=== PATIENT | female | born 1965 | race Caucasian/White ===

== ENCOUNTER → 2020-11-03 15:04 | Outpatient (BNVA) | payer BC, SELFPAY | PROVIDERS: PCP Internal Medicine; Referring Provider Internal Medicine; Visit Provider Student in an Organized Health Care Education/Training Program | DX: Z76.89 Persons encountering health services in other specified circumstances (principal) ==

== ENCOUNTER → 2020-11-27 10:26 | Outpatient (BNVA) | payer BC, SELFPAY | PROVIDERS: PCP Internal Medicine; Visit Provider Student in an Organized Health Care Education/Training Program ==

== ENCOUNTER → 2021-03-03 08:23 | Outpatient (BNVA) | payer BC, SELFPAY | PROVIDERS: Visit Provider Student in an Organized Health Care Education/Training Program ==

== ENCOUNTER → 2021-04-02 10:49 | Outpatient (BNVA) | payer BC, SELFPAY | PROVIDERS: PCP Internal Medicine; Visit Provider Student in an Organized Health Care Education/Training Program ==

== ENCOUNTER → 2021-07-28 11:09 | Outpatient (BNVA) | payer BC, SELFPAY | PROVIDERS: PCP Internal Medicine; Visit Provider Nurse Practitioner Family ==

== ENCOUNTER → 2021-10-12 11:38 | Outpatient (BNVA) | payer BC, SELFPAY | PROVIDERS: PCP Internal Medicine; Visit Provider Nurse Practitioner Family ==

== ENCOUNTER → 2022-01-14 11:29 | Outpatient (BNVA) | payer BC, SELFPAY | PROVIDERS: PCP Internal Medicine; Visit Provider Nurse Practitioner Family ==

== ENCOUNTER → 2022-03-01 10:12 | Outpatient (BNVA) | payer BC, SELFPAY | PROVIDERS: PCP Internal Medicine; Visit Provider Nurse Practitioner Family | DX: Z13.89 Encounter for screening for other disorder (principal) ==

== ENCOUNTER 2023-08-18 09:16 | Outpatient (AMB) | payer BC, SELFPAY ==
--- NOTE | 2023-08-18 09:24 | A.OFFVIS_ITS ---
Intake Vital Signs 08/18/23 09:26 Height 5 ft 5 in Weight 153 lb 7.068 oz BMI 25.5 BP 112/74 Blood Pressure Location Rt brachial Position Sitting Pulse 85 Pulse Source Pulse Oximeter Temp 97.5 F Temp Source Skin Pulse Oximetry (%) 99 Intake Visit Reasons: RA Intake Note: Pt presents today for follow up. She was last sen by Rachel 03/01/22. Reports she was on kevzara had to go off for surgery January 2022. Would rather not go back on injectable. Failed MTX, Xeljanz, Humira Porcelain Enamel Installer Required: No Accompanied by: Self / Same As Patient Allergies No Known Allergies Allergy (Verified 08/18/23 09:29) Medication List - Last Reconciled 08/18/23 by Marciano Monroe MD bupropion HCl 150 mg PO QAM cholecalciferol (vitamin D3) 50 mcg PO DAILY HPI HPI Comments History of Present Illness Details This is a 58-year-old female with seropositive RA who presents for follow-up. She was last seen by Radha Vee . She has been off DMARDs since 01/2022 in preparation for bilateral foot bunion surgery. She was last on Kevzara. Patient went for left foot bunion surgery followed by her right foot bunion surgery a few months later. The plate in the right foot was removed. Recently patient was evaluated by her dual hose cementer, the plate in her left foot was moving, patient stated that her dual hose cementer told her that since it was not symptomatic, there was no need to remove it. She stated however that repeat x-rays of the feet showed deteriorating bone Patient states that over the last year or so she has been having intermittent flare-ups of joint pain and swelling which effects both her shoulders, hands, ankles. She has flare-ups that occur about once a week, usually late at night, can last 1 day to a few days. She used very treated with large doses of Aleve or ibuprofen. 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 Review of Systems [facility] [place] Reports arthralgias, Reports joint swelling, Reports limited range of motion and Reports stiffness Physical Exam Vital Signs: Last Vital Signs Temp 97.5 F 08/18/23 09:26 Pulse 85 08/18/23 09:26 BP 112/74 08/18/23 09:26 Pulse Ox 99 08/18/23 09:26 BMI result Body Mass Index 25.5 Const General: cooperative, healthy appearing and comfortable Nutritional Appearance: average body habitus Orientation/consciousness: patient oriented x3 Limitations: no limitations HEENT Head: Yes normocephalic and Yes atraumatic Mouth: moist mucous membranes Resp Effort & Inspection: normal respiratory effort and able to speak in complete sentences Auscultation: clear to auscultation bilaterally Cardio Rate: regular rate Rhythm: regular rhythm GI Inspection: No distended Palpation (GI): Soft to palpation and nontender Skin General skin exam: no rashes or lesions noted Neuro General: patient oriented x3 Extrem Other: Left wrist pain with full flexion Positive MCP squeeze test left hand Puffiness of fingers of both hands Right 1st, 2nd, 4th and 5th MCP swelling and tenderness Few tender PIPs bilaterally Right wrist tenderness and pain with flexion and extension No elbow or shoulder pain with full range of motion bilaterally Positive MTP squeeze test bilaterally without swelling No ankle swelling or tenderness bilaterally Normal range of motion of both knees without pain Normal nailfold capillaroscopy Assessment & Plan Assessment & Plan (1) Seropositive rheumatoid arthritis: Comment: +RF+++CCP dx 2016 MTX started around 2016, incomplete response, Humira added afterwards. Both were self discontinued switched to Xeljanz in 01/2021, switched to Kevzara 06/2021 due to incomplete response effective kevzara held 02/2022 in preparation for bilateral bunion surgery Code(s): M05.9 - Rheumatoid arthritis with rheumatoid factor, unspecified Plan: This is a 58-year-old female who presents for evaluation of seropositive RA. Patient has been off DMARDs since 01/2022 in preparation for bilateral bunion surgery. For the last year patient has been having intermittent flare-ups of inflammatory arthritis. On exam patient has multiple swollen and tender joints. Needs to restart DMARDs. We had a long discussion about multiple DMARDs. Oral versus injectable. Today will check bilateral hand and wrist x-rays to evaluate for erosions. Will request records from patient's dual hose cementer Check labs today Follow-up in Two weeks to discuss treatment. Plan I spent 35 minutes reviewing patient's chart, evaluating patient, ordering diagnostic workup, counseling patient and documenting in the chart Orders: Orders Complete Blood Count Auto Diff Today M05.9 - Rheumatoid arthritis with rheumatoid factor, unspecified Comprehensive Met. Panel Today M05.9 - Rheumatoid arthritis with rheumatoid factor, unspecified Hepatitis A,B,C Profile Today Z11.59 - Encounter for screening for other viral diseases Protein Electrophoresis, Serum Today M05.9 - Rheumatoid arthritis with rheumatoid factor, unspecified XR hand wrist RT Today M05.9 - Rheumatoid arthritis with rheumatoid factor, unspecified Scleroderma 12 Panel Today M34.9 - Systemic sclerosis, unspecified C Reactive Protein Today M05.9 - Rheumatoid arthritis with rheumatoid factor, unspecified Erythrocyte Sedimentation Rate Today M05.9 - Rheumatoid arthritis with rheumato id factor, unspecified Immunofixation Pnl, Serum Today M05.9 - Rheumatoid arthritis with rheumatoid factor, unspecified T Spot TB Today Z11.7 - Encounter for testing for latent tuberculosis infection XR hand wrist LT Today M05.9 - Rheumatoid arthritis with rheumatoid factor, unspecified Coding Level of Care Code Est Pt Level 4 (36120) Diagnoses Seropositive rheumatoid arthritis M05.9
[2023-08-18 09:26] VITALS: BP 112/74; PULSE 85; TEMP 36.4; O2SAT 99; BMI 25.5
== END 2023-08-18 10:03 | disposition home or self-care (01) ==
PROVIDERS: PCP Internal Medicine; Visit Provider Student in an Organized Health Care Education/Training Program
DX: M05.79 Rheumatoid arthritis with rheumatoid factor of multiple sites without organ or systems involvement (principal)
CPT/HCPCS: 99214

== ENCOUNTER 2023-08-18 09:16 | Outpatient (REF) | payer BC, SELFPAY ==
--- NOTE | ~2023-08-18 | XR_ITS ---
EXAMINATION: XR WRIST, LEFT XR HAND, LEFT CLINICAL INFORMATION: Rheumatoid arthritis without rheumatoid factor, unspecified COMPARISON: Same-day right hand TECHNIQUE: PA, lateral, and oblique views of the left wrist and PA, lateral, and oblique views of the left hand FINDINGS: LEFT WRIST: The bones are intact. No fracture. There is marked narrowing of the radiocarpal joint with subchondral cystic formation in the distal radius. The triscaphe joint is narrow. No soft tissue calcifications. LEFT HAND: The bones are intact. No fracture. Alignment is anatomic. Mild erosive changes involve the head of the first metacarpal and base of the proximal phalanx of the thumb. There is mild narrowing of the first carpometacarpal joint and fifth metacarpophalangeal joint. Small ?Calcific densities in the dorsal aspect of the middle finger at the level of the middle phalanx XR/XR hand wrist LT IMPRESSION: 1. Degenerative changes of the left wrist. 2. Arthritic changes of the left hand. 3. No acute bony abnormality.
--- NOTE | ~2023-08-18 | XR_ITS ---
EXAMINATION: XR WRIST, RIGHT XR HAND, RIGHT CLINICAL INFORMATION: Rheumatoid arthritis without rheumatoid factor, unspecified COMPARISON: None available. TECHNIQUE: PA, lateral, and oblique views of the right wrist and PA, lateral, and oblique views of the right hand FINDINGS: RIGHT WRIST: The bones are intact. No fracture. Alignment is anatomic. There is mild narrowing of the triscaphe joint and first carpometacarpal joint. No erosions or soft tissue calcifications. RIGHT HAND: The bones are intact.. No fracture. Alignment is anatomic. There are marked erosive changes involving the head of the first metacarpal with marked narrowing of the first carpometacarpal joint. There are marked erosive changes involving the head of the second metacarpal and base of the proximal phalanx of the index finger with narrowing of the second metacarpophalangeal joint. Small erosive changes also involve the base of the proximal phalanx of the ring finger and base of the proximal phalanx of the little finger. XR/XR hand wrist RT IMPRESSION: Erosive changes in the hand as described above.
[2023-08-18 10:35] LABS: MANUAL DIFF FLAG NO
[2023-08-18 11:27] LABS: Basophils Absolute Auto 0.1 X10*3/uL (0.0-0.2); Eosinophils Absolute Auto 0.2 X10*3/uL (0.0-0.4); Eosinophils Percent Auto 2.3 % (0-4); Hematocrit 41.4 % (37.0-47.0); Hemoglobin 13.6 g/dl (12.0-16.0); Imm Gran Abs Auto 0.03 X10*3/uL (0.00-0.03); Imm Gran Pct Auto 0.4 % (0.0-0.4); Lymphocytes Absolute Auto 2.4 X10*3/uL (1.2-4.9); Lymphocytes Percent Auto 30.4 % (20-40); Mean Corpuscular HGB Conc 32.9 g/dl (31.0-35.0); Mean Corpuscular Hemoglobin 30.5 pg (27.0-33.0); Mean Corpuscular Volume 92.8 fL (80.0-98.0); Monocytes Absolute Auto 0.7 X10*3/uL (0.1-1.2); Monocytes Percent Auto 9.3 % (2-11); Neutrophils Absolute Auto 4.5 x10*3/uL (2.0-8.3); Neutrophils Percent Auto 56.6 % (45-73); Platelet Count 361 X10*3/uL (160-400); Red Blood Count 4.46 X10*6/uL (4.20-5.50); Red Cell Distribution Width 13.3 % (11.0-16.0)
[2023-08-18 12:08] LABS: Erythrocyte Sedimentation Rate 5 MM/HR (0-20)
[2023-08-18 12:14] LABS: Alanine Aminotransferase 8 U/L (0-31); Albumin Level 4.2 g/dL (3.5-5.0); Alkaline Phosphatase 84 U/L (39-117); Anion Gap 13 (12-20); Aspartate Amino Transferase 19 U/L (5-31); Bilirubin Total 0.5 mg/dL (0.0-1.0); Blood Urea Nitrogen 21 mg/dL (9-16); C Reactive Protein < 0.10 mg/dL (< or = 0.50); Calcium 9.9 mg/dL (8.4-10.2); Carbon Dioxide 23 mmol/L (22-29); Chloride 107 mmol/L (96-108); Estimated Glomerular Filt Rate > 60; Glucose Random 85 mg/dL (60-115); Potassium 4.5 mmol/L (3.3-5.1); Sodium 138 mmol/L (135-145); Total Protein 7.5 g/dL (6.5-8.0)
[2023-08-21 01:14] LABS: TS Negative Control Passed; TS Panel A 0; TS Panel B 1; TS Positive Control Passed; TSpotTB Negative (Negative)
[2023-08-21 08:45] LABS: HBS Num1 1.73 mIU/mL (0-7.99); HBc Num1 0.09 S/CO (0.00-0.79); HBsAGNum1 0.34 S/CO (0.00-0.99); Hepatitis A Antibody IgM 0.18 Index (0-0.79); Hepatitis B Core Antibody Nonreactive (Nonreactive); Hepatitis B Surface Antigen Negative (Negative); ~HepC Num1 0.05 S/CO (0.00-0.79); ~Hepatitis A Antibody IgM Nonreactive (Nonreactive); ~Hepatitis B Surface Antibody NONREACTIVE (Nonreactive); ~Hepatitis C Antibody Nonreactive (Nonreactive)
[2023-08-22 10:04] LABS: Prot Elec - Albumin 4.2 g/dL (3.8-4.8); Prot Elec - Alpha1 0.3 g/dL (0.2-0.3); Prot Elec - Alpha2 0.7 g/dL (0.5-0.9); Prot Elec - Beta 1 0.4 g/dL (0.4-0.6); Prot Elec - Beta 2 0.3 g/dL (0.2-0.5); Prot Elec - Gamma 1.2 g/dL (0.8-1.7); Prot Elec - Total Protein 7.1 g/dL (6.1-8.1)
[2023-08-23 14:44] LABS: IgA 152 mg/dL (47-310); IgG 1334 mg/dL (600-1640); IgM 134 mg/dL (50-300)
[2023-08-25 11:58] LABS: Centromere Protein A Ab <11 SI (<11); Centromere Protein B Ab <11 SI (<11); Fibrillarin Ab <11 SI (<11); PM SCL 100 Ab <11 SI (<11); PM SCL 75 Ab <11 SI (<11); RNA Polymerase III RP11 Ab <11 SI (<11); RNA Polymerase III RP155 Ab <11 SI (<11); SCL-70 Extractable Nuclear Ab <11 SI (<11); Th-To Ab <11 SI (<11); U1 SNRNP RNP 70KD <11 SI (<11); U1 SNRNP RNP A <11 SI (<11); U1 SNRNP RNP C <11 SI (<11)
== END 2023-08-18 09:17 | disposition home or self-care (01) ==
LOC: HO.XRAY 09:16
PROVIDERS: PCP Internal Medicine; Visit Provider Student in an Organized Health Care Education/Training Program
DX: Z11.59 Encounter for screening for other viral diseases (principal); Z11.7 Encounter for testing for latent tuberculosis infection; M05.9 Rheumatoid arthritis with rheumatoid factor, unspecified; Z72.89 Other problems related to lifestyle
CPT/HCPCS: 36415; 73110; 73130; 80053; 82784; 84165; 84182; 85025; 85652; 86140; 86235; 86334; 86481; 86704; 86706; 86709; 86803; 87340

== ENCOUNTER 2023-09-08 15:16 | Outpatient (AMB) | payer BC, SELFPAY ==
--- NOTE | 2023-09-08 15:16 | A.OFFVIS_ITS ---
Intake Intake Visit Reasons: RA Intake Note: Telehealth follow up for test results. Kitchen Designer Required: No Accompanied by: Self / Same As Patient Allergies No Known Allergies Allergy (Verified 09/08/23 15:17) Medication List - Last Reconciled 09/08/23 by Marciano Monroe MD bupropion HCl 150 mg PO QAM cholecalciferol (vitamin D3) 50 mcg PO DAILY HPI HPI Comments History of Present Illness Details 58-year-old female with seropositive RA returns for tele health follow- up. Doing about the same overall. INITIAL HISTORY: This is a 58-year-old female with seropositive RA who presents for follow-up. She was last seen by Radha Vee . She has been off DMARDs since 01/2022 in preparation for bilateral foot bunion surgery. She was last on Kevzara. Patient went for left foot bunion surgery followed by her right foot bunion surgery a few months later. The plate in the right foot was removed. Recently patient was evaluated by her high school math teacher, the plate in her left foot was moving, patient stated that her high school math teacher told her that since it was not symptomatic, there was no need to remove it. She stated however that repeat x-rays of the feet showed deteriorating bone Patient states that over the last year or so she has been having intermittent flare-ups of joint pain and swelling which effects both her shoulders, hands, ankles. She has flare-ups that occur about once a week, usually late at night, can last 1 day to a few days. She used very treated with large doses of Aleve or ibuprofen. 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 Review of Systems [facility] [place] Reports arthralgias, Reports joint swelling, Reports limited range of motion and Reports stiffness Physical Exam Const Other: Telehealth phone visit General: cooperative Resp Effort & Inspection: normal respiratory effort and able to speak in complete sentences Results Reviewed Results Reviewed: [address] [address] XRay Report Signed Patient: Rula Napoles MR#: [id number] : 1965 Acct:[id number] Age/Sex: 58 / F ADM Date: 08/18/23 Loc: [facility] Attending Dr: Marciano Monroe MD Ordering Physician: Marciano Monroe MD Date of Service: 08/18/23 Procedure(s): XR hand wrist LT Accession Number(s): [id number] cc: Jaime Miguel MD; Marciano Monroe MD~ EXAMINATION: XR WRIST, LEFT XR HAND, LEFT CLINICAL INFORMATION: Rheumatoid arthritis without rheumatoid factor, unspecified COMPARISON: Same-day right hand TECHNIQUE: PA, lateral, and oblique views of the left wrist and PA, lateral, and oblique views of the left hand FINDINGS: LEFT WRIST: The bones are intact. No fracture. There is marked narrowing of the radiocarpal joint with subchondral cystic formation in the distal radius. The triscaphe joint is narrow. No soft tissue calcifications. LEFT HAND: The bones are intact. No fracture. Alignment is anatomic. Mild erosive changes involve the head of the first metacarpal and base of the proximal phalanx of the thumb. There is mild narrowing of the first carpometacarpal joint and fifth metacarpophalangeal joint. Small ?Calcific densities in the dorsal aspect of the middle finger at the level of the middle phalanx XR/XR hand wrist LT IMPRESSION: 1. Degenerative changes of the left wrist. 2. Arthritic changes of the left hand. 3. No acute bony abnormality. [address] [address] XRay Report Signed Patient: Rula Napoles MR#: [id number] : 1965 Acct:[id number] Age/Sex: 58 / F ADM Date: 08/18/23 Loc: [facility] Attending Dr: Marciano Monroe MD Ordering Physician: Marciano Monroe MD Date of Service: 08/18/23 Procedure(s): XR hand wrist RT Accession Number(s): [id number] cc: Jaime Miguel MD; Marciano Monroe MD~ EXAMINATION: XR WRIST, RIGHT XR HAND, RIGHT CLINICAL INFORMATION: Rheumatoid arthritis without rheumatoid factor, unspecified COMPARISON: None available. TECHNIQUE: PA, lateral, and oblique views of the right wrist and PA, lateral, and oblique views of the right hand FINDINGS: RIGHT WRIST: The bones are intact. No fracture. Alignment is anatomic. There is mild narrowing of the triscaphe joint and first carpometacarpal joint. No erosions or soft tissue calcifications. RIGHT HAND: The bones are intact.. No fracture. Alignment is anatomic. There are marked erosive changes involving the head of the first metacarpal with marked narrowing of the first carpometacarpal joint. There are marked erosive changes involving the head of the second metacarpal and base of the proximal phalanx of the index finger with narrowing of the second metacarpophalangeal joint. Small erosive changes also involve the base of the proximal phalanx of the ring finger and base of the proximal phalanx of the little finger. XR/XR hand wrist RT IMPRESSION: Erosive changes in the hand as described above. Assessment & Plan Assessment & Plan (1) Seropositive rheumatoid arthritis: Comment: +RF+++CCP dx 2016 MTX started around 2016, incomplete response, Humira added afterwards. Both were self discontinued switched to Xeljanz in 01/2021, switched to Kevzara 06/2021 due to incomplete response effective kevzara held 02/2022 in preparation for bilateral bunion surgery Code(s): M05.9 - Rheumatoid arthritis with rheumatoid factor, unspecified Plan: This is a 58-year-old female who presents for evaluation of seropositive RA. Patient has been off DMARDs since 01/2022 in preparation for bilateral bunion surgery. For the last year patient has been having intermittent flare-ups of inflammatory arthritis. On exam patient has multiple swollen and tender joints. Bilateral hand x-rays show new erosions. Needs to restart DMARDs. We had a long discussion about multiple DMARDs. In the past patient had incomplete response to methotrexate. Humira was ineffective. Patient generally does not do well with injectable medications. Would prefer an oral medicine. We discussed risks and benefits of Xeljanz. Discussed the black box warning and it's association with increased cardiovascular events, blood clots and malignancy. Patient would like to proceed with Xeljanz. Will start prior authorization for Xeljanz Labs before next visit in 3 months (2) Immunization counseling: Code(s): Z71.85 - Encounter for immunization safety counseling Plan: Discussed ACR vaccination guidelines for adults with autoimmune rheumatic disease. Advised patient to get the Shingrix vaccine as well as the new COVID booster and flu vaccine Plan I spent 10 minutes on the phone with patient, additional 15 minutes were spent reviewing her chart, placing orders and documenting in the chart Orders: Orders Comprehensive Met. Panel 3 Months M05.9 - Rheumatoid arthritis with rheumatoid factor, unspecified Complete Blood Count Auto Diff 3 Months M05.9 - Rheumatoid arthritis with rheumatoid factor, unspecified C Reactive Protein 3 Months M05.9 - Rheumatoid arthritis with rheumatoid factor, unspecified Erythrocyte Sedimentation Rate 3 Months M05.9 - Rheumatoid arthritis with rheumatoid factor, unspecified Telehealth Telehealth Location of provider rendering services: practice address Location of patient: address on file Patient Identification confirmed using: Name, : Yes Telehealth method: voice only Patient verbally consented to treatment: Yes Patient verbally consented to billing insurance company: Yes Patient informed of any privacy concerns related to visit: Yes Coding Level of Care Code Tele Est Pt Level 4 (94649) Diagnoses Seropositive rheumatoid arthritis M05.9 Immunization counseling Z71.85
== END 2023-09-08 16:08 | disposition home or self-care (01) ==
LOC: HO.RHE 15:16
PROVIDERS: PCP Internal Medicine; Visit Provider Student in an Organized Health Care Education/Training Program
DX: M05.79 Rheumatoid arthritis with rheumatoid factor of multiple sites without organ or systems involvement (principal); Z71.85 Encounter for immunization safety counseling
CPT/HCPCS: 99442

== ENCOUNTER → 2023-09-08 15:16 | Outpatient (BNVA) | payer BC, SELFPAY | PROVIDERS: PCP Internal Medicine; Visit Provider Student in an Organized Health Care Education/Training Program ==

== ENCOUNTER 2024-02-22 07:39 | Outpatient (AMB) | payer BC, SELFPAY ==
[2024-02-22 07:42] VITALS: BP 114/62; PULSE 80; O2SAT 98
--- NOTE | 2024-02-22 07:42 | A.OFFVIS_ITS ---
Intake Vital Signs 02/22/24 07:42 Weight 155 lb 13.869 oz BP 114/62 Pulse 80 Pulse Source Pulse Oximeter Pulse Oximetry (%) 98 Intake Visit Reasons: RA Intake Note: Pt last seen 09/08/23 presents today for follow up Family Practice Nurse Practitioner Required: No Accompanied by: Self / Same As Patient Allergies No Known Allergies Allergy (Verified 02/22/24 07:43) Medication List - Last Reconciled 02/22/24 by Marciano Monroe MD bupropion HCl XL 150 mg PO QAM multivitamin 1 tab PO DAILY Xeljanz XR (tofacitinib) 11 mg PO DAILY NS HPI HPI Comments History of Present Illness Details 58-year-old female with seropositive RA returns for follow-up. On Xeljanz 11 mg daily. Doing very well overall. States that this is the best medications she has been on for rheumatoid arthritis so far. Swelling and pain of her hands has become significantly better. She gets intermittent aching of her right thumb MCP. Recently had CT chest to screen for lung cancer and was found to have a thyroid nodule. She is going to have a thyroid ultrasound. Will see her PCP next month INITIAL HISTORY: This is a 58-year-old female with seropositive RA who presents for follow-up. She was last seen by Radha Vee . She has been off DMARDs since 01/2022 in preparation for bilateral foot bunion surgery. She was last on Kevzara. Patient went for left foot bunion surgery followed by her right foot bunion surgery a few months later. The plate in the right foot was removed. Recently patient was evaluated by her business support specialist, the plate in her left foot was moving, patient stated that her business support specialist told her that since it was not symptomatic, there was no need to remove it. She stated however that repeat x-rays of the feet showed deteriorating bone Patient states that over the last year or so she has been having intermittent flare-ups of joint pain and swelling which effects both her shoulders, hands, ankles. She has flare-ups that occur about once a week, usually late at night, can last 1 day to a few days. She used very treated with large doses of Aleve or ibuprofen. 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 Review of Systems [employer] Denies arthralgias, Denies joint swelling and Denies stiffness Physical Exam Vital Signs: Last Vital Signs Pulse 80 02/22/24 07:42 BP 114/62 02/22/24 07:42 Pulse Ox 98 02/22/24 07:42 Const General: cooperative, healthy appearing and comfortable Nutritional Appearance: average body habitus Orientation/consciousness: patient oriented x3 Limitations: no limitations HEENT Head: Yes normocephalic and Yes atraumatic Mouth: moist mucous membranes Resp Effort & Inspection: normal respiratory effort and able to speak in complete sentences Auscultation: clear to auscultation bilaterally Cardio Rate: regular rate Rhythm: regular rhythm GI Inspection: No distended Palpation (GI): Soft to palpation and nontender Skin General skin exam: no rashes or lesions noted Neuro General: patient oriented x3 Extrem Other: No wrist pain with flexion and extension bilaterally Synovial thickening of right 2nd MCP without swelling or tenderness Normal range of motion of elbows , shoulders, knees bilaterally without pain No active synovitis otherwise Normal nailfold capillaroscopy Results Reviewed Results Reviewed: Labs 02/2024. Total cholesterol 294 HDL 78 LDL 204 Assessment & Plan Assessment & Plan (1) Seropositive rheumatoid arthritis: Comment: +RF+++CCP dx 2015 MTX started around 2016, incomplete response, Humira added afterwards. Both were self discontinued switched to Xeljanz in 01/2021, switched to Kevzara 06/2021 due to incomplete response effective kevzara held 02/2022 in preparation for bilateral bunion surgery Xeljanz 09/2023 effective Code(s): M05.9 - Rheumatoid arthritis with rheumatoid factor, unspecified Plan: This is a 58-year-old female who presents for evaluation of seropositive RA. On Xeljanz 11 mg daily for the last 4-5 months with excellent control of her RA. Inflammatory markers normal. On previous visits, we Discussed the black box warning and it's association with increased cardiovascular events, blood clots and malignancy. P Labs before next visit in 6 months (2) Immunization counseling: Code(s): Z71.85 - Encounter for immunization safety counseling Plan: Patient received COVID and Shingrix vaccines (3) Dyslipidemia: Code(s): E78.5 - Hyperlipidemia, unspecified Plan: Labs showed significant dyslipidemia. Patient stated that she has always had high cholesterol. Was never on medication. I do not have any previous report of her cholesterol however her cholesterol might be elevated due to better control of her RA, aging or a secondary effect of Xeljanz. Her LDL is 204 and I believe she should be on a cholesterol-lowering medication. She will discuss with her PCP. Repeat lipid panel before next visit in 6 months Plan I spent 26 minutes reviewing patient's chart, evaluating patient, ordering diagnostic workup, counseling patient and documenting in the chart Orders: Orders Complete Blood Count Auto Diff 6 Months M05.9 - Rheumatoid arthritis with rheumatoid factor, unspecified Comprehensive Met. Panel 6 Months M05.9 - Rheumatoid arthritis with rheumatoid factor, unspecified C Reactive Protein 6 Months M05.9 - Rheumatoid arthritis with rheumatoid factor, unspecified Erythrocyte Sedimentation Rate 6 Months M05.9 - Rheumatoid arthritis with rheumatoid factor, unspecified Lipid Panel 6 Months E78.5 - Hyperlipidemia, unspecified Coding Level of Care Code Est Pt Level 4 (84630) Diagnoses Seropositive rheumatoid arthritis M05.9 Immunization counseling Z71.85 Dyslipidemia E78.5
== END 2024-02-22 07:59 | disposition home or self-care (01) ==
PROVIDERS: PCP Internal Medicine; Visit Provider Student in an Organized Health Care Education/Training Program
DX: M05.79 Rheumatoid arthritis with rheumatoid factor of multiple sites without organ or systems involvement (principal); Z71.85 Encounter for immunization safety counseling; E78.5 Hyperlipidemia, unspecified
CPT/HCPCS: 99213

== ENCOUNTER → 2024-02-22 07:39 | Outpatient (BNVA) | payer BC, SELFPAY | PROVIDERS: PCP Internal Medicine; Visit Provider Student in an Organized Health Care Education/Training Program ==

== ENCOUNTER 2024-08-22 07:47 | Outpatient (AMB) | payer BC, SELFPAY ==
[2024-08-22 08:04] VITALS: BP 112/66; PULSE 84; O2SAT 100; BMI 23.5
--- NOTE | 2024-08-22 08:04 | MHC.OFFVIS ---
Vital Signs 08/22/24 08:04 Height 5 ft 5 in Weight 141 lb 5.061 oz BMI 23.5 BP 112/66 Blood Pressure Location Lt brachial Position Sitting Pulse 84 Pulse Source Pulse Oximeter Pulse Oximetry (%) 100 Oxygen Delivery Method Room Air Intake Visit Reasons: RA/cm Intake Note: Patient last seen by Doctor Marciano Monroe on 02/22/24. Presents today for RA follow up and test results.? Allergies No Known Allergies Allergy (Verified 08/22/24 08:05) Medication List - Last Reconciled 08/22/24 by Marciano Monroe MD bupropion HCl XL 150 mg PO QAM multivitamin 1 tab PO DAILY Xeljanz XR (tofacitinib) TAKE 1 TABLET DAILY NS HPI Comments Details: 59-year-old female with seropositive RA returns for follow-up. On Xeljanz 11 mg daily. Doing very well overall. States that this is the best medications she has been on for rheumatoid arthritis so far. She states that she gets intermittent flare-ups, the flare-ups are few and far in between, sometimes at night. Denies any joint swelling. She has been watching her diet, she has cut down fried food, she has lost 14 lb since last visit. She had COVID 2 weeks ago that rapidly resolved INITIAL HISTORY: This is a 58-year-old female with seropositive RA who presents for follow-up. She was last seen by Radha Vee . She has been off DMARDs since 01/2022 in preparation for bilateral foot bunion surgery. She was last on Kevzara. Patient went for left foot bunion surgery followed by her right foot bunion surgery a few months later. The plate in the right foot was removed. Recently patient was evaluated by her trailhead maintenance worker, the plate in her left foot was moving, patient stated that her trailhead maintenance worker told her that since it was not symptomatic, there was no need to remove it. She stated however that repeat x-rays of the feet showed deteriorating bone Patient states that over the last year or so she has been having intermittent flare-ups of joint pain and swelling which effects both her shoulders, hands, ankles. She has flare-ups that occur about once a week, usually late at night, can last 1 day to a few days. She used very treated with large doses of Aleve or ibuprofen. 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 [employer] Review of Systems Musc Denies arthralgias, Denies joint swelling and Denies stiffness Physical Exam Vital Signs: Last Vital Signs Pulse 84 08/22/24 08:04 BP 112/66 08/22/24 08:04 Pulse Ox 100 08/22/24 08:04 Oxygen Delivery Method Room Air 08/22/24 08:04 BMI result Body Mass Index 23.5 Const General: cooperative, healthy appearing and comfortable Nutritional Appearance: average body habitus Orientation/consciousness: patient oriented x3 Limitations: no limitations HEENT Head: Yes normocephalic and Yes atraumatic Mouth: moist mucous membranes Resp Effort & Inspection: normal respiratory effort and able to speak in complete sentences Auscultation: clear to auscultation bilaterally Cardio Rate: regular rate Rhythm: regular rhythm GI Inspection: No distended Palpation (GI): Soft to palpation and nontender Skin General skin exam: no rashes or lesions noted Neuro General: patient oriented x3 Extrem Other: No wrist pain with flexion and extension bilaterally Synovial thickening of right 2nd MCP without swelling or tenderness Normal range of motion of elbows , shoulders, knees bilaterally without pain No active synovitis otherwise Normal nailfold capillaroscopy Assessment & Plan Assessment & Plan (1) Seropositive rheumatoid arthritis: Comment: +RF+++CCP dx 2016 MTX started around 2016, incomplete response, Humira added afterwards. Both were self discontinued switched to Xeljanz in 01/2021, switched to Kevzara 06/2021 due to incomplete response effective kevzara held 02/2022 in preparation for bilateral bunion surgery Xeljanz 09/2023 effective Code(s): M05.9 - Rheumatoid arthritis with rheumatoid factor, unspecified Category: Medical Plan: This is a 59-year-old female who presents for evaluation of seropositive RA. On Xeljanz 11 mg daily with excellent control of her RA. Inflammatory markers normal. On previous visits, we Discussed the black box warning and it's association with increased cardiovascular events, blood clots and malignancy. Patient is aware Continue Xeljanz 11 mg p.o. daily Labs before next visit in 6 months (2) Immunization counseling: Code(s): Z71.85 - Encounter for immunization safety counseling Category: Medical Plan: Patient had a COVID infection 2 weeks ago. Advised patient to get the flu vaccine soon, weight 2 months before she gets the new COVID booster. She received Shingrix vaccine in the past. She completed the initial COVID series (3) Dyslipidemia: Code(s): E78.5 - Hyperlipidemia, unspecified Category: Medical Plan: Dyslipidemia significantly improved compared to last visit. LDL is down to 123 from to 204 with dieting alone. Patient has cut down significantly on fried food and has lost 14 lb. I congratulated patient on her progress. Check lipid panel before next visit (4) High risk medication use: Code(s): Z79.899 - Other intermodal customer service (current) drug therapy Category: Medical Plan I spent 26 minutes reviewing patient's chart, evaluating patient, ordering diagnostic workup, counseling patient and documenting in the chart Orders: Orders Complete Blood Count Auto Diff 6 Months M05.9 - Rheumatoid arthritis with rheumatoid factor, unspecified C Reactive Protein 6 Months M05.9 - Rheumatoid arthritis with rheumatoid factor, unspecified Lipid Panel 6 Months M05.9 - Rheumatoid arthritis with rheumatoid factor, unspecified Comprehensive Met. Panel 6 Months M05.9 - Rheumatoid arthritis with rheumatoid factor, unspecified Erythrocyte Sedimentation Rate 6 Months M05.9 - Rheumatoid arthritis with rheumatoid factor, unspecified Coding Level of Care Code Est Pt Level 4 (74563) Complex EM visit Add On G2211 Diagnoses Seropositive rheumatoid arthritis M05.9 Immunization counseling Z71.85 Dyslipidemia E78.5 High risk medication use Z79.899
== END 2024-08-22 08:19 | disposition home or self-care (01) ==
PROVIDERS: PCP Internal Medicine; Visit Provider Student in an Organized Health Care Education/Training Program
DX: M05.79 Rheumatoid arthritis with rheumatoid factor of multiple sites without organ or systems involvement (principal); Z71.85 Encounter for immunization safety counseling; E78.5 Hyperlipidemia, unspecified; Z79.899 Other long term (current) drug therapy
CPT/HCPCS: 99214

== ENCOUNTER → 2024-08-22 07:47 | Outpatient (BNVA) | payer BC, SELFPAY | PROVIDERS: PCP Internal Medicine; Visit Provider Student in an Organized Health Care Education/Training Program ==

== ENCOUNTER 2025-06-10 10:21 | Outpatient (AMB) | payer BC, SELFPAY ==
--- NOTE | 2025-06-10 10:29 | A.OFFVIS_ITS ---
Vital Signs 06/10/25 10:35 Height 5 ft 5 in Weight 142 lb BMI 23.6 BP 115/70 Blood Pressure Location Lt brachial Position Sitting Pulse 85 Pulse Source Pulse Oximeter Pulse Oximetry (%) 98 Oxygen Delivery Method Room Air Intake Visit Reasons: RA Intake Note: Patient presents for RA follow up. Allergies No Known Allergies Allergy (Verified 06/10/25 10:35) HPI Comments Details: Patient is a 60-year-old female with hyperlipidemia and seropositive rheumatoid arthritis here today for follow up Interval History: Patient last seen 08/22/[address] Monroe - On Xeljanz 11mg daily - Doing well, reported that the Xeljanz was the best medication thus far - Continues to have intermittent flares but they are few and far between Today, - On Xeljanz 11mg daily - Continues to do well, no significant complaints Rheumatologic History: +RF+++CCP dx 2015 MTX started around 2016, incomplete response, Humira added afterwards. Both were self discontinued switched to Xeljanz in 01/2021, switched to Kevzara 06/2021 due to incomplete response effective kevzara held 02/2022 in preparation for bilateral bunion surgery Xeljanz 09/2023 effective INITIAL HISTORY: This is a 58-year-old female with seropositive RA who presents for follow-up. She was last seen by Radha Vee . She has been off DMARDs since 01/2022 in preparation for bilateral foot bunion surgery. She was last on Kevzara. Patient went for left foot bunion surgery followed by her right foot bunion surgery a few months later. The plate in the right foot was removed. Recently patient was evaluated by her accounts receivable representative, the plate in her left foot was moving, patient stated that her accounts receivable representative told her that since it was not symptomatic, there was no need to remove it. She stated however that repeat x-rays of the feet showed deteriorating bone Patient states that over the last year or so she has been having intermittent flare-ups of joint pain and swelling which effects both her shoulders, hands, ankles. She has flare-ups that occur about once a week, usually late at night, can last 1 day to a few days. She used very treated with large doses of Aleve or ibuprofen. 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 Review of Systems Const Details: Review of Systems Constitutional: Denies fever, chills, weight loss ENT: Denies vision changes, eye pain or eye redness, dental caries, dry mouth GI: Denies nausea, vomiting, diarrhea, abdominal pain, change in BM Pulm: Denies SOB, HERNANDEZ, hemoptysis, wheezing Cards: Denies chest pain, palpitations Skin: Denies Raynaud's, rash, nail changes, photosensitivity, ANTHROPOLOGIST PHYSICAL: Denies headaches, weakness, paresthesias, recurrent falls MSK: as per HPI All other systems reviewed and are unremarkable except noted above Physical Exam Exam Exam: Vital signs reviewed Physical Examination CONSTITUITIONAL Patient alert and cooperative. Well appearing and in no apparent painful distress HEENT Conjunctiva and sclera clear. No lymphadenopathy. CHEST/RESPIRATORY SYSTEM Normal respiratory effort and able to speak in complete sentences. Clear to auscultation bilaterally. No crackles, rales, rhonchi, wheezes heard. CARDIAC SYSTEM Regular rate and rhythm. S1 and S2 heard no murmurs. Radial pulses intact bilaterally MSK Hands * Right Hand: Able to make a fist. No swelling or tenderness to palpation of these joints. Synovial hypertrophy of the 2nd MCP without TTP * Left Hand: Able to make a fist. No swelling or tenderness to palpation of these joints. No deformities noted. Wrists * Right Wrist: Full ROM. 70 degrees of wrist flexion, 80 degrees of wrist extension. No swelling or TTP * Left Wrist: Full ROM. 70 degrees of wrist flexion, 80 degrees of wrist extension. No swelling or TTP Elbows * Right Elbow: Full ROM. No swelling or TTP. No TTP of the medial and lateral epicondyles * Left Elbow: Full ROM. No swelling or TTP. No TTP of the medial and lateral epicondyles Shoulders * Right shoulder: Full ROM. No swelling noted. No TTP of the AC joint, subacromial bursa or posterior shoulder * Left shoulder: Full ROM. No swelling noted. No TTP of the AC joint, subacromial bursa or posterior shoulder Hip bursa: No tenderness to palpation bilaterally Knees * Right knee: Full ROM. No swelling noted. No TTP of the knee joint lie or pes anserine bursa * Left knee: Full ROM. No swelling noted. No TTP of the knee joint lie or pes anserine bursa. Ankles * Right ankle: Good ankle dorsiflexion and plantar flexion. No swelling. No TTP of the ankle joint * Left ankle: Good ankle dorsiflexion and plantar flexion. No swelling. No TTP of the ankle joint Feet * Right foot: Negative squeeze test * Left foot: Negative squeeze test Tender points? * No tenderness to palpation of the bilateral trapezius, supraspinatus, anterior costochondral junctions, bilateral suboccipital muscle insertions SKIN No rashes Vital Signs: Last Vital Signs Pulse 85 06/10/25 10:35 BP 115/70 06/10/25 10:35 Pulse Ox 98 06/10/25 10:35 Oxygen Delivery Method Room Air 06/10/25 10:35 BMI result Body Mass Index 23.6 Results Reviewed Results Reviewed: 03/10/25 [facility] WBC 7.7 Hb 14.2 Plt 367 BUN 15 Cr 0.74 eGFR 93 AST 27 ALT 16 dsDNA ESR 12 CRP <1 Hep A NR Hep B NR Hep C NR Tb Negative Assessment & Plan Assessment & Plan (1) Seropositive rheumatoid arthritis: Comment: +RF+++CCP dx 2015 MTX started around 2016, incomplete response, Humira added afterwards. Both were self discontinued switched to Xeljanz in 01/2021, switched to Kevzara 06/2021 due to incomplete response effective kevzara held 02/2022 in preparation for bilateral bunion surgery Xeljanz 09/2023 effective Code(s): M05.9 - Rheumatoid arthritis with rheumatoid factor, unspecified Category: Medical Plan: #Seropositive RA Patient is a 60-year-old female with seropositive rheumatoid arthritis here today for follow up. Currently on Xeljanz 11 mg daily and currently in remission with no evidence of synovitis on examination. Plan - Xeljanz 11mg daily - RTC 6 months - Labs before visit: CBC, CMP, ESR, CRP (2) Long-term current use of tofacitinib: Code(s): Z79.622 - termite inspector (current) use of Janus kinase inhibitor Plan: #Long-term Use of VALDEMAR inhibitors: Xeljanz (Tofacitinib)/ Rinvoq (Upadacitinib)/ Olumiant (Baricitinib) Discussed with patient the benefits and risks of VALDEMAR inhibitors for the management of the rheumatic condition Benefits include reduce pain, maintenance of remission and reduction of flares Risks include thromboembolic events, skin cancer and nonmelanoma skin cancers, other forms of cancer, cardiovascular alcohol and mortality Advise patient that they are to hold the medication and for up to 1 week after a febrile illness or an open skin wound Plan I spent 26 minutes reviewing the record and labs, taking a history, examining the patient, discussing the treatment plan, ordering diagnostic work up and documenting in the medical record Coding Level of Care Code Est Pt Level 3 (35664) Complex EM visit Add On G2211 Diagnoses Seropositive rheumatoid arthritis M05.9 Long-term current use of tofacitinib Z79.622
[2025-06-10 10:35] VITALS: BP 115/70; PULSE 85; O2SAT 98; BMI 23.6
--- OUTSIDE RECORDS SUMMARY | 2025-06-10 10:59 | XMS_ITS | Clinical Summary ---
Author Organization [facility] Address [address] [place] [address] Care Team Providers Care Mutuel Machine Operator Name Role Phone Jaime Miguel MD Primary Care Provider [phone] Surgical History Surgery Date Site/Laterality Comments BREAST SURGERY PROCEDURE:BREAST SURGERY BREAST SURGERY 09/03/2020 Bilateral PROCEDURE:REDUCTION MAMMAPLASTY;COMMENT:Procedure: BILATEAL REDUCTION MAMMOPLASTY; Surgeon: Thanh Parra MD; Location: [facility]; Service: Plastics; Laterality: Bilateral; SECTION PROCEDURE: SECTION Medical History Medical History Date Comments Rheumatoid arthritis (CMS/HC C V24, CMS/HCC V28) DX:Rheumatoid arthritis (HCC ) Peripheral neuropathy DX:Periphe ral neuropathy;COMMENT:history Lyme disease DX:Lyme disease; COMMENT:2 years ago Family History Medical History Relation Name Comments Heart disease Father Heart disease Maternal Grandmother Relation Name Status Comments Father Maternal Grandmother Social History Tobacco Use Types Packs/Day Years Used Date Smoking Tobacco: Former Smokeless Tobacco: Current Alcohol Use Standard Drinks/Week Comments Yes 0 (1 standard drink = 0.6 oz pur e alcohol) Comments Unknown Sex and Gender Information Value Date Recorded Sex Assigned at Not on file Legal Sex Female 6:34 AM EST Gender Identity Not on file Sexual Orientation Not on file Obstetrics History Last Filed Vital Signs Vital Sign Reading Time Taken Comments Blood Pressure 120/82 01/10/2023 9:31 AM EST Sit ting Left arm Pulse 82 01/10/2023 9:31 AM EST Temperature - - Respiratory Rate - - Oxygen Saturation - - Inhaled Oxygen Concentration - - Weight 67.6 kg (149 lb) 01/10/2023 9:31 AM EST Height 165.1 cm (5' 5 ) 01/10/2023 9:31 AM EST Body Mass Index 24.79 01/10/2023 9:31 AM EST Plan of Treatment Health Maintenance Due Date Last Done Comments Breast Cancer Screening 1964 DTaP,Tdap,and Td Vaccines (1 - Tdap) 1983 Cervical Cancer Screening: P ap Smear 1985 Pneumococcal Vaccine: 50+ Ye ars (1 of 1 - PCV) 2014 Zoster Vaccines (1 of 2) 2014 Colorectal Cancer Screening: Colonoscopy 12/10/2023 HIV Screening 12/10/2023 Hepatitis C Screening 12/10/2023 Social Influencers of Health Screening 12/10/2023 COVID-19 Vaccine (1 - 2023-2 5 season) 2024 Depression Screening 11/06/2024 Influenza Vaccine (#1) 2025 RSV Immunization Adult Patie nts (1 - 1-dose 75+ series) 2039 HIB Vaccines Aged Out No longer eligi ble based on patient's age to complete this topic HPV Vaccines Aged Out No longer eligi ble based on patient's age to complete this topic Hepatitis A Vaccines Aged Out No long er eligible based on patient's age to complete this topic Hepatitis B Vaccines Aged Out No long er eligible based on patient's age to complete this topic IPV Vaccines Aged Out No longer eligi ble based on patient's age to complete this topic MMR Vaccines Aged Out No longer eligi ble based on patient's age to complete this topic Meningococcal ACWY Vaccine Aged Out N o longer eligible based on patient's age to complete this topic Meningococcal B Vaccine Aged Out No l onger eligible based on patient's age to complete this topic RSV Immunization Patients Un john 20 months Aged Out No longer eligible b ased on patient's age to complete this topic Varicella Vaccines Aged Out No longer eligible based on patient's age to complete this topic Care Teams Mutuel Machine Operator Relationship Specialty Start Date End Date Jaime Miguel MD [address] [place] [address] [address] [place], [place] PCP - General Geriatric Medicine 08/07/20
--- OUTSIDE RECORDS SUMMARY | 2025-06-10 10:59 | XMS_ITS | Clinical Summary ---
Author Organization [address] Address [address] [place] [id number] Care Team Providers Care Transitions Rn Care Coordinator Name Role Phone Jaime Miguel MD Primary Care Provider [phone] Allergies No known active allergies Medications acetaminophen (TYLENOL) 325 mg tablet Take by mouth every 6 (six) hours as needed. Active buPROPion XL (WELLBUTRIN XL) 150 mg 24 hr tablet Take 1 tablet (150 mg total) by mouth daily. 06/17/2024 Active XELJANZ XR 11 mg 24 hr extended release tablet 07/23/2024 Acti ve Active Problems Problem Noted Date Diagnosed Date Abdominal pain, unspecified abdominal location 0 08/05/2024 Eustachian tube dysfunction, right 08/05/2024 Vaginal discharge 08/05/2024 Social History Tobacco Use Types Packs/Day Years Used Date Smoking Tobacco: Never Smokeless Tobacco: Never Tobacco Cessation:Counseling Given: Not Answered Alcohol Use Standard Drinks/Week Comments Yes 0 (1 standard drink = 0.6 oz pur e alcohol) Comments Unknown Sex and Gender Information Value Date Recorded Sex Assigned at Not on file Legal Sex Female 8:13 AM EDT Gender Identity Not on file Sexual Orientation Not on file Last Filed Vital Signs Vital Sign Reading Time Taken Comments Blood Pressure 95/58 08/05/2024 11:21 AM EDT Pulse 91 08/05/2024 11:21 AM EDT Temperature 36.8 C (98.3 F) 08/05/2024 11:21 AM EDT Respiratory Rate 16 08/05/2024 11:21 AM EDT Oxygen Saturation 99% 08/05/2024 11:21 AM EDT Inhaled Oxygen Concentration - - Weight 67.1 kg (148 lb) 08/05/2024 11:21 AM EDT Height 165.1 cm (5' 5 ) 08/05/2024 11:21 AM EDT Body Mass Index 24.63 08/05/2024 11:21 AM EDT Plan of Treatment Health Maintenance Due Date Last Done Comments HIV screening 1977 Hepatitis C screening 1982 Pneumococcal Vaccine (50+ ye ars) (1 of 2 - PCV) 1983 Tetanus adult (Td q 10,TDAP once) 1984 Cervical cancer screening 1985 Breast cancer screening 2004 Lipid disorder screening 2004 Colon cancer screening, Colonoscopy 2009 Diabetes screening 2009 Shingles vaccine (Shingrix) (1 of 2 - Shingrix (RZV) 2 Dose Standard Series) 2014 RSV Immunization (1 - Risk 6 0-74 years 1-dose series) 2024 Covid-19 vaccine series ( - 2023- season) 2024 Influenza vaccine 07/07/2025 Meningococcal Vaccine Aged Out No easton rae eligible based on patient's age to complete this topic [place] [address] [address] [place] [address] BCBS Care Teams Transitions Rn Care Coordinator Relationship Specialty Start Date End Date Jaime Miguel MD [address] [phone] PCP - General Internal Medicine 08/05/24
--- OUTSIDE RECORDS SUMMARY | 2025-06-10 10:59 | XMS_ITS ---
Author Name [facility] Organization Unknown History of Medication Use Medication Directions Dispensed Refills Start Date End Date Stat us buPROPion XL (WELLBUTRIN XL) 150 mg 24 hr tablet Take 1 tablet (150 mg total) by mouth daily. 06/17/2024 active Doxycycline Hyclate 100mg Capsule 11/18/2022 11/27/2022 active Oxycodone Hydrochloride 5mg Tablet 11/18/2022 11/22/2022 active Silvadene 1% Topical Cream 07/06/2022 08/04/2022 active OxyContin 10mg Extended-Release Tablet 05/31/2022 06/04/2022 active Crutches 12/27/2021 03/26/2022 active Xeljanz 10mg tablet 03/10/2021 a ctive Allergies Allergen Reaction Severity Comment Documented Date Source Statu s .NO KNOWN DRUG ALLERGIES ENS_POD CRCT Problems Problem Status Onset Date Problem Type Date of Resolution Source Displacement of internal fixation device of bones of foot and toes, sequela active 2022-11-18 ProblemAct ENS_PODCRCT Pain in RIGHT ankle and joints of foot / sinus tarsi syndrome active 2022-11-18 ProblemAct E[facility]OD[facility] Aftercare for removal of sutures active 2022-02-[address] Problem[address] Disruption of external operation (surgical) wound, Dehiscence, not elsewhere classified, initial encounter active 2022-06-28 ProblemAct ENS_PODCRCT Aftercare following surgical amputation active 2022-12-23 ProblemAct ENS_PODC RCT Tendinitis / enthesopathy RIGHT FOOT, capsulitis, periostitis active 2015-09-03 ProblemAct ENS_PODCRCT Enthesopathy active 2015-05-29 ProblemAct ENS_P ODCRCT Hallux valgus, left foot active 2021-02-10 ProblemAct ENS_PODCRCT Neuroma, left lower limb active 2015-09-03 ProblemAct ENS_PODCRCT Rheumatoid nodule, left ankle and foot active 2021-01-20 ProblemAct ENS_PODC RCT Hammer toe active 2022-04-15 ProblemAct ENS_POD CRCT Aftercare following orthopedic procedure active 2022-01-28 ProblemAct ENS_PODCRCT Heel pain active 2022-10-05 ProblemAct ENS_[facility]OD[facility] RCT Neuroma, right lower limb active 2015-09-03 ProblemAct ENS_PODCRCT Tinea unguium, onychomycosis active 2021-01-20 ProblemAct ENS_PODCRCT 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 active 2022-10-26 ProblemAct ENS_PODC RCT Hallux valgus, right foot active 2022-06-14 ProblemAct ENS_PODCRCT Heel pain active 2021-11-22 ProblemAct ENS_POD[facility] RCT Chronic osteomyelitis of ankle and/or foot active 2022-10-05 ProblemAct ENS_PODCRC T 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 ProblemAct ENS_PODCRCT Screws, plates, and orthopedic devices (including sutures) ADDITIONAL CODE associated w adverse incidents active 2022-11-18 ProblemAct ENS_PODCRC T Pressure ulcer of other site, stage 2 active 2022-10-05 ProblemAct ENS_PODC RCT Cellulitis of right lower limb active 2022-06-28 ProblemAct ENS_PODCRCT Rheumatoid arthritis, right ankle and foot active 2021-01-20 ProblemAct ENS_PODCRCT Nodule, mass and lump, left lower limb active 2022-10-26 ProblemAct ENS_PODCRCT Rheumatoid arthritis, left ankle and foot active 2021-01-20 ProblemAct ENS_PODCRCT Neuropathy active 2016-09-13 ProblemAct ENS_POD CRCT Pain in LEFT ankle and joints of foot / sinus tarsi syndrome active 2022-10-26 ProblemAct ENS_PODCRCT Tendinitis / enthesopathy LEFT FOOT, capsulitis, periostitis active 2015-09-03 ProblemAct ENS_PODCRCT Bunion of left foot active 2021-01-20 ProblemAct ENS_PODCRCT Hammer toe active 2021-02-10 ProblemAct ENS_POD CRCT Bone cyst, left ankle and foot active 2022-10-26 ProblemAct ENS_PODCRCT Bunion of right foot active 2021-01-20 ProblemAct ENS_PODCRCT Pain in left toe(s) active 2025-03-[address] ENS_PODCRCT Plantar Flexed Metatarsal - Metatarsalgia, RIGHT foot active 2025-03-14 EncounterDiagnosisAct ENS_PO DCRCT Plantar Flexed Metatarsal - Metatarsalgia, LEFT foot active 2025-03-14 EncounterDiagnosisAct ENS_PO DCRCT Nail dystrophy active 2025-03-14 EncounterDiagnosisAct ENS_PODCRCT Pain in right toe(s) active 2025-03-14 EncounterDiagnosisAct ENS_PO DCRCT Abdominal pain, unspecified abdominal location active 2024-08-[address] Eustachian tube dysfunction, right active 2024-08-[address] [facility] Vaginal discharge active 2024-08-[address] [facility] Encounters Encounter Type Encounter Reason Primary Diagnosis Location Date Ambulatory Abdominal pain, unspecified site Abdominal pain, unspecified site [facility] 08/05/2024 Ambulatory [facility] 11/21/2022 Care Team Organization Name Specialty Phone Email Start Date End Da te [facility] Primary Care [facility] 04/08/2023 [facility] provided No Primary Care 11/21/2022 06/24/2024 [facility] No provided Primary Care 11/21/2022 023 [facility] Primary Care
--- OUTSIDE RECORDS SUMMARY | 2025-06-10 10:59 | XMS_ITS | Clinical Summary ---
Author Organization [facility] Address [address] [place] [address] Care Team Providers Care Seeing Eye Dog Teacher Name Role Phone Jaime Miguel MD Primary Care Provider [phone] Allergies No known active allergies Medications Medication Sig Dispensed Refills Start Date End Date Status acetaminophen (TYLENOL) 325 MG tablet Take by mouth every 6 (six) hours as needed for pain. 0 Active buPROPion (WELLBUTRIN XL) 150 MG 24 hr tablet Take 1 tablet (150 mg total) by mouth daily. 0 11/30/2022 Active Hospital, Clinic, or Other Facility Administered Medication Ordered Dose Route Frequency Start Date End Date Status cefTRIAXone (ROCEPHIN) injection 2 gIndications:Wound infection after surgery 2 g IV Once 01/24/2023 Active Active Problems No known active problems Family History Medical History Relation Name Comments Heart disease Father Heart disease Maternal Grandmother Relation Name Status Comments Father Maternal Grandmother Social History Tobacco Use Types Packs/Day Years Used Date Smoking Tobacco: Former Smokeless Tobacco: Current Tobacco Cessation:Ready to Q uit: Not Asked; Counseling Given: Not Answered Alcohol Use Standard Drinks/Week Comments Yes 0 (1 standard drink = 0.6 oz pur e alcohol) SOCIAL Sex and Gender Information Value Date Recorded Sex Assigned at Female 08/07/2020 1:49 PM EDT Gender Identity Female 08/27/2020 3:38 AM EDT Sexual Orientation Not on file Job Start Date Occupation Industry Not on file Not on file Not on file Last Filed Vital Signs Vital Sign Reading Time Taken Comments Blood Pressure 137/83 03/07/2023 9:00 AM EDT Pulse 101 03/07/2023 9:00 AM EDT Temperature 36.4 C (97.6 F) 03/07/2023 9:00 AM EDT Respiratory Rate 18 03/07/2023 9:00 AM EDT Oxygen Saturation 98% 03/07/2023 9:00 AM EDT Inhaled Oxygen Concentration - - Weight 67.1 kg (148 lb) 01/24/2023 1:42 PM EDT Height 165.1 cm (5' 5 ) 01/24/2023 1:42 PM EDT Body Mass Index 24.63 01/24/2023 1:42 PM EDT Plan of Treatment Health Maintenance Due Date Last Done Comments Hepatitis C Screening 1964 COVID-19 Vaccine (#1) 1964 Depression Screening 1976 Preventative Health Evaluation 1982 DTap / Tdap / Td (1 - Tdap) 1983 Cervical Cancer Screening (P ap Smear) 1985 Colon Cancer Screening (Colonoscopy) 2009 Breast Cancer Screening (Mammogram) 2014 Shingrix-Zoster Vaccine (1 of 2) 2014 Influenza Vaccine (#1) 2025 RSV Adult > 60+ Yrs or Pregn ant (1 - 1-dose 75+ series) 2039 Hepatitis B Vaccines Aged Out No long er eligible based on patient's age to complete this topic Pneumococcal Vaccine Aged Out No long er eligible based on patient's age to complete this topic RSV Ped < 20 months Aged Out No longe r eligible based on patient's age to complete this topic Care Teams Seeing Eye Dog Teacher Relationship Specialty Start Date End Date Jaime Miguel MD [address] [facility] [address] [place] [address] PCP - General Geriatric Medicine 08/07/20
== END 2025-06-10 10:56 | disposition home or self-care (01) ==
LOC: HO.RHES 10:21
PROVIDERS: PCP Internal Medicine; Visit Provider Student in an Organized Health Care Education/Training Program
DX: M05.9 Rheumatoid arthritis with rheumatoid factor, unspecified (principal); Z79.622 Long term (current) use of Janus kinase inhibitor
CPT/HCPCS: 99213

== ENCOUNTER 2025-07-22 12:54 | Outpatient (REF) | payer BC, SELFPAY ==
--- NOTE | ~2025-07-22 | US_ITS ---
Procedure: Endovascular ablation of the right greater saphenous vein with VenaSeal HISTORY: Varicose veins INDICATIONS: Symptomatic varicose veins bilateral lower extremity. Symptoms include aching. PROCEDURE/FINDINGS: Informed consent was obtained following a discussion of the risks and benefits of the procedure with the patient. The patient was placed supine on the ultrasound procedure table. Preliminary ultrasound demonstrates dilated refluxing right greater saphenous vein. A site was marked on the left medial leg . The right leg was sterilely prepped and draped. Following the administration of 1% lidocaine for local anesthesia, the greater saphenous vein was accessed with a 21-gauge micropuncture needle under direct ultrasound guidance. The needle was exchanged for the transitional dilator over a 0.018 guidewire. A 0.035 guidewire was then advanced to the saphenofemoral junction. The VenaSeal sheath was then inserted over the wire and positioned 10 cm from the saphenofemoral junction. VenaSeal glue was then delivered along the length of the greater saphenous vein while retracting the catheter with compression at the saphenofemoral junction to prevent glue from traveling forward. The delivery device was removed and hemostasis was achieved with manual compression. Postprocedure ultrasound demonstrates successful occlusion of the treated veins with widely patent and compressible saphenofemoral junction. Patient tolerated the procedure well without immediate complication. US/US venaseal vein closure IMPRESSION: Successful VenaSeal ablation of the right greater saphenous vein. Follow-up ultrasound in 5-7 days Electronically signed by: Sebastián Lazaro MD 07/24/2025 11:36 AM EDT Workstation: [id number]
[2025-07-22] MEDS: Lidocaine HCl 1 % MPF 5 ML VIAL SUBCUT (15:55)
--- OUTSIDE RECORDS SUMMARY | 2025-07-22 16:52 | XMS_ITS | Clinical Summary ---
Author Organization [address] Address [address] [place] [phone] Care Team Providers Care Biological Science Technician Fish Name Role Phone Jaime Miguel MD Primary Care Provider [phone] Allergies No known active allergies Medications acetaminophen [...] years 1-dose series) 2024 Covid-19 vaccine series (2023- season) 2025 Influenza vaccine 07/07/2025 Meningococcal B Vaccine Aged Out No l onger eligible based on patient's age to complete this topic Meningococcal Vaccine Aged Out No easton rae eligible based on patient's age to complete this topic Insurance BS BCBS BCBS Care Teams Biological Science Technician Fish Relationship Specialty Start Date End Date Jaime Miguel MD [address] [place] [phone] PCP - General Internal Medicine 08/05/24
--- OUTSIDE RECORDS SUMMARY | 2025-07-22 16:52 | XMS_ITS | Clinical Summary ---
Author Organization [facility] Address [address] [place] [address] Care Team Providers Care Controls Operator Molded Goods Name Role Phone Jaime Miguel MD Primary Care Provider [phone] Surgical History Surgery Date Site/Laterality Comments BREAST SURGERY PROCEDURE:BREAST SURGERY BREAST SURGERY 09/03/2020 Bilateral PROCEDURE:REDUCTION MAMMAPLASTY;COMMENT:Procedure: BILATEAL REDUCTION MAMMOPLASTY; Surgeon: Thanh Parra MD; Location: [facility]; Service: Plastics; Laterality: Bilateral; SECTION [...] 12/10/2023 Social Influencers of Health Screening 12/10/2023 Depression Screening 11/06/2024 COVID-19 Vaccine (1 - 2023-2 5 season) 2025 Influenza Vaccine (#1) 2025 RSV Immunization Adult [...] age to complete this topic Care Teams Controls Operator Molded Goods Relationship Specialty Start Date End Date Jaime Miguel MD [address] [place] [address] [address] [place], [place] PCP - General Geriatric Medicine 08/07/20
== END 2025-07-22 12:55 | disposition home or self-care (01) ==
LOC: HO.US 12:54
PROVIDERS: PCP Internal Medicine; Visit Provider Student in an Organized Health Care Education/Training Program
DX: I87.2 Venous insufficiency (chronic) (peripheral) (principal); I83.813 Varicose veins of bilateral lower extremities with pain
CPT/HCPCS: 36482; C1894; J2003

== ENCOUNTER → 2025-07-22 12:57 | Outpatient (BNV) | payer BC, SELFPAY | PROVIDERS: PCP Internal Medicine | DX: I83.11 Varicose veins of right lower extremity with inflammation (principal) | CPT/HCPCS: 36482 ==

== ENCOUNTER 2025-07-29 12:52 | Outpatient (REF) | payer BC, SELFPAY ==
--- NOTE | ~2025-07-29 | US_ITS ---
Procedure: Endovascular ablation of the right anterior accessory saphenous vein with STS HISTORY: Varicose veins INDICATIONS: Symptomatic varicose veins bilateral lower extremity. Symptoms include aching, heaviness, fatigue and edema. PROCEDURE/FINDINGS: Informed consent was obtained following a discussion of the risks and benefits of the procedure with the patient. The patient was placed supine on the ultrasound procedure table. Preliminary ultrasound demonstrates dilated refluxing right anterior accessory saphenous vein. A site was marked and prepped on the right anterior leg . Under ultrasound guidance with permanent recordings with direct visualization of the needle into the vein lumen, the anterior accessory saphenous vein was accessed using a 23-gauge butterfly needle. Using the Tessari method, STS was mixed using a 4:1 ratio with room air. The foam was then administered into the vein with dispersion maneuvers to spread the injectate. The delivery device was removed and hemostasis was achieved with manual compression. Postprocedure ultrasound demonstrates successful occlusion of the treated vein with widely patent and compressible saphenofemoral junction. Patient tolerated the procedure well without immediate complication. US/US Vein Inj Sclerosant Single IMPRESSION: Successful STS ablation of the right anterior accessory saphenous vein. Follow-up ultrasound in 5-7 days Electronically signed by: Sebastián Lazaro MD 07/29/2025 05:07 PM EDT Workstation: [id number]
--- NOTE | ~2025-07-29 | US_ITS ---
EXAMINATION: US TRIPLEX LOWER EXTREMITY, RIGHT CLINICAL INFORMATION: COMPARISON: None available. TECHNIQUE: Color-flow triplex imaging with spectral analysis and compression Doppler were performed on the right lower extremity. FINDINGS: Respiratory variation, normal compression and augmented flow are noted throughout the right lower extremity. The visualized common femoral vein, superficial femoral vein, profunda femoral vein, popliteal vein and midcalf peroneal and posterior tibial venous segments show no evidence of deep venous thrombosis. The right common femoral vein demonstrates normal respiratory variability but with spectral broadening relative to the left. The proximal 2.3 cm of the great saphenous vein is patent with continuous venous waveform. At the level of a VenaSeal procedure and distally, the great saphenous vein is hypoechoic without flow US/US venous duplex LE RT IMPRESSION: Right great saphenous vein post VenaSeal appears thrombosed at the level of the procedure and distally. The proximal 2.3 cm of the greater saphenous vein is patent. No evidence of deep venous thrombosis involving the right lower extremity. There is spectral broadening of the right common femoral vein waveform consistent with increased turbulence of flow but normal respiratory variability. Electronically signed by: Nicolas Gan MD 07/29/2025 04:32 PM EDT
[2025-07-29] MEDS: Sodium Tetradecyl Sulfate 1% 2 ML VIAL 1 ML INTRAVARIC (14:25)
--- OUTSIDE RECORDS SUMMARY | 2025-07-29 15:43 | XMS_ITS | Clinical Summary ---
Author Organization [facility] Address [address] [place] [address] Care Team Providers Care Cleaner Signs Name Role Phone Jaime Miguel MD Primary Care Provider [phone] Surgical History Surgery Date Site/Laterality Comments BREAST SURGERY PROCEDURE:BREAST SURGERY BREAST SURGERY 09/03/2020 Bilateral PROCEDURE:REDUCTION MAMMAPLASTY;COMMENT:Procedure: BILATEAL REDUCTION MAMMOPLASTY; Surgeon: Thanh Parra MD; Location: [facility]; Service: Plastics; Laterality: Bilateral; [...] age to complete this topic Care Teams Cleaner Signs Relationship Specialty Start Date End Date Jaime Miguel MD [address] [place] [address] [address] [place], [place] PCP - General Geriatric Medicine 08/07/20
--- OUTSIDE RECORDS SUMMARY | 2025-07-29 15:43 | XMS_ITS | Clinical Summary ---
Author Organization [address] Address [address] [place] [phone] Care Team Providers Care Deck Steward Name Role Phone Jaime Miguel MD Primary Care Provider Allergies No known active allergies Medications acetaminophen [...] topic Insurance BS BCBS BCBS Care Teams Deck Steward Relationship Specialty Start Date End Date Jaime Miguel MD [address] [place] [phone] PCP - General Internal Medicine 08/05/24
--- OUTSIDE RECORDS SUMMARY | 2025-07-29 15:43 | XMS_ITS | Clinical Summary ---
Author Organization [facility] Address [address] [place] [address] Care Team Providers Care Montessori Paraprofessional Name Role Phone Jaime Miguel MD Primary Care Provider [phone] Allergies No known active allergies Medications Medication [...] age to complete this topic Care Teams Montessori Paraprofessional Relationship Specialty Start Date End Date Jaime Miguel MD [address] [facility] [address] [place] [address] PCP - General Geriatric Medicine 08/07/20
== END 2025-07-29 12:53 | disposition home or self-care (01) ==
LOC: HO.US 12:52
PROVIDERS: PCP Internal Medicine; Visit Provider Student in an Organized Health Care Education/Training Program
DX: I83.813 Varicose veins of bilateral lower extremities with pain (principal); R53.83 Other fatigue; R60.9 Edema, unspecified
CPT/HCPCS: 36470; 93971

== ENCOUNTER → 2025-07-29 13:40 | Outpatient (BNV) | payer BC, SELFPAY | PROVIDERS: PCP Internal Medicine; Visit Provider Radiology Diagnostic Radiology | DX: I83.11 Varicose veins of right lower extremity with inflammation (principal) | CPT/HCPCS: 36470; 93971 ==

== ENCOUNTER 2025-08-05 12:53 | Outpatient (REF) | payer BC, SELFPAY ==
--- NOTE | ~2025-08-05 | US_ITS ---
Procedure: Endovascular ablation of the left anterior accessory saphenous vein with STS HISTORY: Varicose veins INDICATIONS: Symptomatic varicose veins bilateral lower extremity. Symptoms include pain, swelling PROCEDURE/FINDINGS: Informed consent was obtained following a discussion of the risks and benefits of the procedure with the patient. The patient was placed supine on the ultrasound procedure table. Preliminary ultrasound demonstrates dilated refluxing left anterior accessory saphenous vein. A site was marked on the left lateral leg . The left leg was prepped and draped. Under ultrasound guidance with permanent recordings, a 23-gauge butterfly needle was inserted into the anterior accessory saphenous vein. Utilizing the Tessari method of a 4-1 ratio of room air to STS, film was administered throughout the anterior accessory saphenous vein. Maneuvers were performed to disperse the injectate. The delivery device was removed and hemostasis was successfully achieved. A sterile dressing was applied. Postprocedure ultrasound demonstrates successful occlusion of the treated vein. The patient tolerated the procedure well without complication. US/US Vein Inj Sclerosant Single IMPRESSION: Successful STS ablation of the left anterior accessory saphenous vein. Follow-up ultrasound in 5-7 days The procedure was performed by Aditya Flores NP and supervised by Sebastián Lazaro M.D. Electronically signed by: Sebastián Lazaro MD 08/15/2025 04:51 PM EDT Workstation: [id number]
--- NOTE | ~2025-08-05 | US_ITS ---
EXAMINATION: US TRIPLEX LOWER EXTREMITY, RIGHT CLINICAL INFORMATION: ASV ablation 1 week ago, GSV VenaSeal 2 wk ago COMPARISON: None available. TECHNIQUE: Color-flow triplex imaging with spectral analysis and compression Doppler were performed on the right lower extremity. FINDINGS: Respiratory variation, normal compression and augmented flow are noted throughout the right lower extremity. The visualized common femoral vein, superficial femoral vein, profunda femoral vein, popliteal vein and midcalf peroneal and posterior tibial venous segments show no evidence of deep venous thrombosis. Right anterior accessory saphenous vein demonstrates flow in the proximal 2 cm of the vessel and is occluded distally demonstrated low-level internal echogenicity and no flow on color Doppler. The great saphenous vein demonstrates minimal flow on color Doppler at the saphenofemoral junction. US/US venous duplex LE RT IMPRESSION: Right anterior accessory saphenous vein is occluded within 2 cm of the confluence. Imaged portion of the great saphenous vein demonstrates minimal flow near the saphenofemoral junction. No evidence of right lower extremity deep venous thrombosis. Electronically signed by: Nicolas Gan MD 08/28/2025 11:01 AM EDT
--- OUTSIDE RECORDS SUMMARY | 2025-08-05 14:02 | XMS_ITS | Clinical Summary ---
Author Organization [facility] Address [address] [place] [address] Care Team Providers Care Sky Cap Name Role Phone Jaime Miguel MD Primary Care Provider [phone] Allergies No known active allergies Medications Medication [...] age to complete this topic Care Teams Sky Cap Relationship Specialty Start Date End Date Jaime Miguel MD [address] [facility] [address] [place] [address] PCP - General Geriatric Medicine 08/07/20
--- OUTSIDE RECORDS SUMMARY | 2025-08-05 14:02 | XMS_ITS | Clinical Summary ---
Author Organization [address] Address [address] [place] [phone] Care Team Providers Care Outdoor Education Teacher Name Role Phone Jaime Miguel MD Primary Care Provider [phone] Allergies No known active allergies Medications acetaminophen [...] Risk 6 0-74 years 1-dose series) 2024 Influenza vaccine 06/06/2025 Covid-19 vaccine series (2023- season) 2025 Meningococcal B Vaccine Aged Out No l onger eligible based on patient's age to complete this topic Meningococcal Vaccine Aged Out No easton rae eligible based on patient's age to complete this topic Insurance BS BCBS BCBS Care Teams Outdoor Education Teacher Relationship Specialty Start Date End Date Jaime Miguel MD [address] [place] [phone] PCP - General Internal Medicine 08/05/24
--- OUTSIDE RECORDS SUMMARY | 2025-08-05 14:02 | XMS_ITS | Clinical Summary ---
Author Organization [facility] Address [address] [place] [address] Care Team Providers Care Blocker Heated Metal Forms Name Role Phone Jaime Miguel MD Primary Care Provider [phone] Surgical History Surgery Date Site/Laterality Comments BREAST SURGERY PROCEDURE:BREAST SURGERY BREAST SURGERY 09/03/2020 Bilateral PROCEDURE:REDUCTION MAMMAPLASTY;COMMENT:Procedure: BILATEAL REDUCTION MAMMOPLASTY; Surgeon: Thanh Parra MD; Location: [facility]; Service: Plastics; Laterality: Bilateral; SECTION [...] age to complete this topic Care Teams Blocker Heated Metal Forms Relationship Specialty Start Date End Date Jaime Miguel MD [address] [place] [address] [address] [place], [place] PCP - General Geriatric Medicine 08/07/20
[2025-08-05] MEDS: Sodium Tetradecyl Sulfate 1% 2 ML VIAL 1 ML INTRAVARIC (14:14)
== END 2025-08-05 12:54 | disposition home or self-care (01) ==
LOC: HO.US 12:53
PROVIDERS: PCP Internal Medicine; Visit Provider Student in an Organized Health Care Education/Training Program
DX: I87.2 Venous insufficiency (chronic) (peripheral) (principal); I83.813 Varicose veins of bilateral lower extremities with pain
CPT/HCPCS: 36470; 93971

== ENCOUNTER → 2025-08-05 13:15 | Outpatient (BNV) | payer BC, SELFPAY | PROVIDERS: PCP Internal Medicine | DX: I83.12 Varicose veins of left lower extremity with inflammation (principal) | CPT/HCPCS: 36470 ==

== ENCOUNTER 2025-08-14 12:59 | Outpatient (REF) | payer BC, SELFPAY ==
--- NOTE | ~2025-08-14 | US_ITS ---
EXAMINATION: US TRIPLEX LOWER EXTREMITY, LEFT CLINICAL INFORMATION: 1 week following post sclerotherapy . COMPARISON: None available. TECHNIQUE: Limited venous ultrasound imaging was performed left lower extremity vein. FINDINGS: Post left sclerotherapy procedure there is no flow visualized in the left superficial saphenous vein. The superficial femoral /saphenous venous junction has no flow. No extension of clot seen within the common femoral or the superficial femoral vein. The accessory superficial vein to the left superficial femoral venous junction measurement is 0.6 cm US/US venous duplex LE LT IMPRESSION: No flow visualized in left superficial saphenous vein. The no flow distance measures 0.6 cm from accessory superficial femoral vein to left superficial femoral venous junction. Electronically signed by: Mahin Donohue MD 08/15/2025 01:55 PM EDT
--- NOTE | ~2025-08-14 | US_ITS ---
Procedure: Endovascular ablation of the left greater saphenous vein with VenaSeal HISTORY: Varicose veins INDICATIONS: Symptomatic varicose veins bilateral lower extremity. Symptoms include aching, heaviness, fatigue and edema. PROCEDURE/FINDINGS: Informed consent was obtained following a discussion of the risks and benefits of the procedure with the patient. The patient was placed prone on the ultrasound procedure table. Preliminary ultrasound demonstrates dilated refluxing left short saphenous vein. A site was marked on the left posterior leg . The left leg was sterilely prepped and draped. Following the administration of 1% lidocaine for local anesthesia, the short saphenous vein was accessed with a 21-gauge micropuncture needle under direct ultrasound guidance. The needle was exchanged for the transitional dilator over a 0.018 guidewire. A 0.035 guidewire was then advanced to the saphenopopliteal junction. The VenaSeal sheath was then inserted over the wire and positioned 10 cm from the saphenopopliteal junction. VenaSeal glue was then delivered along the length of the short saphenous vein while retracting the catheter with compression at the junction to prevent glue from traveling forward. The delivery device was removed and hemostasis was achieved with manual compression. Postprocedure ultrasound demonstrates successful occlusion of the treated veins with widely patent and compressible junction. Patient tolerated the procedure well without immediate complication. US/US venaseal vein closure IMPRESSION: Successful VenaSeal ablation of the left short saphenous vein. Follow-up ultrasound in 5-7 days and 6-8 week office visit post venous treatments. Electronically signed by: Sebastián Lazaro MD 08/15/2025 04:51 PM EDT Workstation: [id number]
[2025-08-14] MEDS: Lidocaine HCl 1 % MPF 5 ML VIAL SUBCUT (14:48)
== END 2025-08-14 13:00 | disposition home or self-care (01) ==
LOC: HO.US 12:59
PROVIDERS: PCP Internal Medicine; Visit Provider Student in an Organized Health Care Education/Training Program
DX: I83.813 Varicose veins of bilateral lower extremities with pain (principal); R53.83 Other fatigue
CPT/HCPCS: 36482; 93971; C1894; J2003

== ENCOUNTER → 2025-08-14 13:23 | Outpatient (BNV) | payer BC, SELFPAY | PROVIDERS: PCP Internal Medicine; Visit Provider Radiology Diagnostic Radiology | DX: I83.12 Varicose veins of left lower extremity with inflammation (principal) | CPT/HCPCS: 36482; 93971 ==

== ENCOUNTER 2025-08-22 10:24 | Outpatient (REF) | payer BC, SELFPAY ==
--- NOTE | ~2025-08-22 | US_ITS ---
EXAMINATION: TRIPLEX SCANNING OF LEFT LOWER EXTREMITY; SUPERFICIAL ULTRASOUND WITH DOPPLER OF LEFT LOWER EXTREMITY CLINICAL INFORMATION: Status post Venaseal of left superficial saphenous vein. COMPARISON: preprocedure studies. TECHNIQUE: Color flow triplex imaging and compression Doppler were performed as well as superficial ultrasound with Doppler. FINDINGS: LEFT LOWER EXTREMITY DEEP VENOUS SYSTEM: Respiratory variation, normal compression and augmented flow are noted throughout the lower extremity. The visualized common femoral vein, femoral vein, profunda femoral vein, popliteal vein and the calf veins show no evidence of deep venous thrombosis. There is no evidence of Eastman's cyst. SUPERFICIAL VENOUS SYSTEM: The superficial saphenous vein is occluded from the access site to 0.6 cm before the saphenofemoral junction. There is no extension of thrombus into the deep system. US/US venous duplex LE IMPRESSION: 1. No evidence of DVT. 2. Excellent appearance status post ablation of the left superficial saphenous vein. Electronically signed by: Alireza Merida MD 08/22/2025 11:04 AM EDT
--- OUTSIDE RECORDS SUMMARY | 2025-08-22 12:27 | XMS_ITS | Clinical Summary ---
Author Organization [facility] Address [address] [place] [address] Care Team Providers Care Agile Project Manager Name Role Phone Jaime Miguel MD Primary Care Provider [phone] Allergies No known active allergies Medications Medication [...] age to complete this topic Care Teams Agile Project Manager Relationship Specialty Start Date End Date Jaime Miguel MD [address] [place] [address] PCP - General Geriatric Medicine 08/07/20
--- OUTSIDE RECORDS SUMMARY | 2025-08-22 12:27 | XMS_ITS | Clinical Summary ---
Author Organization [address] Address [address] [place] [phone] Care Team Providers Care Regulatory Process Manager Name Role Phone Jaime Miguel MD Primary Care Provider [phone] Allergies No known active allergies Medications acetaminophen [...] topic Insurance BS BCBS BCBS Care Teams Regulatory Process Manager Relationship Specialty Start Date End Date Jaime Miguel MD [address] [place] [id number] PCP - General Internal Medicine 08/05/24
--- OUTSIDE RECORDS SUMMARY | 2025-08-22 12:27 | XMS_ITS | Clinical Summary ---
Author Organization [facility] Address [address] [place] [address] Care Team Providers Care Asp Developer Name Role Phone Jaime Miguel MD Primary Care Provider [phone] Surgical History Surgery Date Site/Laterality Comments BREAST SURGERY PROCEDURE:BREAST SURGERY BREAST SURGERY 09/03/2020 Bilateral PROCEDURE:REDUCTION MAMMAPLASTY;COMMENT:Procedure: BILATEAL REDUCTION MAMMOPLASTY; Surgeon: Thanh Parra MD; Location: [facility]; Service: Plastics; Laterality: Bilateral; SECTION [...] Last Done Comments Breast Cancer Screening 1964 Colorectal Cancer Screening: Colonoscopy 1964 DTaP,Tdap,and Td Vaccines (1 - Tdap) 1983 Cervical Cancer Screening: P ap Smear 1985 Pneumococcal Vaccine: 50+ Ye ars (1 of 1 - PCV) 2014 Zoster Vaccines (1 of 2) 2014 HIV Screening 12/10/2023 Hepatitis C Screening 12/10/2023 [...] age to complete this topic Care Teams Asp Developer Relationship Specialty Start Date End Date Jaime Miguel MD [address] [place] [address] [address] [place], [place] PCP - General Geriatric Medicine 08/07/20
== END 2025-08-22 10:25 | disposition home or self-care (01) ==
LOC: HO.US 10:24
PROVIDERS: PCP Internal Medicine; Visit Provider Student in an Organized Health Care Education/Training Program
DX: I87.2 Venous insufficiency (chronic) (peripheral) (principal)
CPT/HCPCS: 93971

== ENCOUNTER → 2025-08-22 10:41 | Outpatient (BNV) | payer BC, SELFPAY | PROVIDERS: PCP Internal Medicine; Visit Provider Radiology Diagnostic Radiology | DX: Z86.718 Personal history of other venous thrombosis and embolism (principal) | CPT/HCPCS: 93971 ==